=== PATIENT | female | born 1940 | race Caucasian/White ===

== ENCOUNTER 2018-07-20 06:55 | Day surgery (SDC) | payer MEDICARE, BC ==
--- NOTE | 2018-07-19 15:01 | History and Physical - [place] ---
CHIEF COMPLAINT/HISTORY OF CHIEF COMPLAINT: This patient presents with a history of intractable lumbar radiculopathy. Due to the failure of therapy, on 02/13/14 a spinal cord stimulator was implanted with internal generator. Over the years the system appeared to be working well until within the last one to one and a half years at which point the system began to fail. The system was Medtronic 28 electrode systems with internal generator. Attempts at salvaging the functionality of the system were unsuccessful. Because of her escalating pain level and the apparent early success of the stimulator she was give the option to remove or replace and she opted to replace. We then gave her the option to replace with Medtronic or with a new [employer] 16 electrode leads rather than 8 greater functionality of the pulse generator and she opted to implant with the new [employer] system. PAST MEDICAL HISTORY: Hypertension. PAST SURGICAL HISTORY: Laparotomy, lumbar spinal surgery, foot surgery, and hand surgery. MEDICATIONS ON ADMISSION: List to be provided. ALLERGIES: NEOMYCIN. FAMILY/PSYCHOSOCIAL HISTORY: Social history - Caffeine. Family history - Coronary artery disease, and hypertension. SYSTEMS REVIEW: The patient is appropriate in no acute distress. The remainder of the systems review is positive for head and neck pain, blood pressure, reflux esophagitis, and fibromyalgia. PHYSICAL EXAMINATION: Height is 5', weight is 180. No vital signs. HEENT: Within normal limits. LUNGS: Clear. HEART: Rapid and regular. ABDOMEN: Nontender. MUSCULOSKELETAL: Examination of the musculoskeletal system shows the incision for the leads midline approximating T12-L1. The generator site is noted at the left posterior gluteal margin. Both incisional sites appear to be intact. Chronic pain pattern low back with a bilateral lower extremity extension. Motor and sensory field evaluation lower extremities shows mild sensory loss bilateral, mild weakness bilateral. Assistive device used for ambulation. NEUROLOGIC: Cranial nerves are intact. IMPRESSION: 1. POST LUMBAR LAMINECTOMY SYNDROME, ICD-10 CODE M96.1 WITH LUMBAR RADICULOPATHY, ICD-10 CODE M54.16 AND M54.17. 2. INTERNAL SPINAL CORD STIMULATOR TWO LEADS INTERNAL GENERATOR NONFUNCTIONAL. PLAN: The patient is here for removal of the two nonfunctional leads and generator and replacement with two new leads and generator. The procedure will be considered outpatient although an overnight stay will be evaluated. The potential risks, side effects, and complications have all been reviewed and discussed including the potential failure of the newer system to adequately control pain in which case she will not have a new system placed, but her previous system removed. JOB NUMBER: [id number] MTDD
[~2018-07-20 06:55] MED LIST: ACETAMINOPHEN 1,000 MG/100 ML BTL IV ONE; CLINDAMYCIN 600MG/50ML PREMIX 600 MG/50 ML BAG IVPB ONE; FAMOTIDINE 20MG TABLET PO ONE; MECLIZINE 25 MG TABLET PO ONE; METOCLOPRAMIDE 10 MG TABLET PO ONE
[2018-07-20] MEDS ORDERED: CLINDAMYCIN (PEDIATRIC DOSING) 150 MG/ML VIAL IVPB ONE (06:56)
[2018-07-20] MEDS ORDERED: VANCOMYCIN HCL 1 GM VIAL IVPB ONE (06:56)
[2018-07-20] MEDS ORDERED: FLUMAZENIL 1MG/10ML VIAL IV ONE (06:56)
[2018-07-20] MEDS ORDERED: KETAMINE HCL 100MG/1ML VIAL INJ ONE (06:56)
[2018-07-20] MEDS ORDERED: LIDOCAINE 2% MDV (20MG/ML) 20ML VIAL IV ONE (06:56)
[2018-07-20] MEDS ORDERED: BUPIVACAINE 0.5% W/EPI MPF 30 ML VIAL IVP ONE (06:56)
[2018-07-20] MEDS ORDERED: LIDOCAINE 1% W/EPI 1:200,000 MPF 30ML SQ ONE (06:56)
[2018-07-20] MEDS ORDERED: PROPOFOL 10 MG/ML VIAL IV ONE (06:56)
[2018-07-20] MEDS ORDERED: MIDAZOLAM HCL 2MG/2ML VIAL IV ONE (06:56)
[2018-07-20] MEDS ORDERED: FENTANYL PF 100MCG/2ML VIAL IV ONE (06:56)
--- NOTE | 2018-07-21 06:27 | Operative Note ---
DATE: 07/20/2018. PRIMARY CARE PHYSICIAN: Dez Turk D.O. PREOPERATIVE DIAGNOSIS: 1. POSTLUMBAR LAMINECTOMY SYNDROME, ICD-10 CODE M96.1. 2. RADICULOPATHY, ICD-10 CODE M54.16 AND M54.17. 3. TWO-LEAD SPINAL CORD IMPLANTED STIMULATOR WITH INTERNAL GENERATOR NONFUNCTIONAL. PROCEDURES: 1. Fluoroscopically guided incision, subcutaneous dissection, and removal of two implanted spinal cord stimulators. 2. Incision, subcutaneous dissection, and removal of internal pulse generator at the left posterosuperior gluteal margin. 3. Fluoroscopically guided epidural access at left T11-12. Placement of spinal cord stimulator lead 1, a [employer] Infineon 16 with 16 electrodes, positioned left T7. 4. Fluoroscopically guided epidural access at left T12-L-1. Placement of spinal cord stimulator lead 2, a [employer] Infineon 16 with 16 electrodes, positioned right T7. 5. Complex programming of lead 1 over 20 minutes followed by complex programming of lead 2 over 20 minutes. 6. Incision with revision of midline incisional site and pouch for placement of leads and anchors. 7. Securing of leads 1 and 2 to supraspinous fascia using a [employer] locking anchor. 8. Revision of left posterior gluteal margin pouch for placement of generator identified as a [employer] programmable rechargeable WaveWriter generator. 9. Tunnelling between lead pouches into generator pouch. Placement of each lead into generator pouch. Each lead interfaced to the generator. 10. Closure of both incisions using Stratafix suture; #2-0 for the fascia and # 3-0 for the skin. Dermabond closure. 11. Complex recovery room programming of the internal generator for home use, two stimulators, for 20 minutes. SURGEON: Gino Arshad D.O. ANESTHESIA: Local sedation. ANESTHESIA PROVIDER: Karen Chiang CRNA. INDICATIONS: This patient presents with a history of intractable postlumbar laminectomy radiculopathy. A number of years previous, a Medtronic spinal cord stimulator eight-electrode system with generator was placed for pain control. Although early on the system appeared to be working, subsequently there was no functionality and loss of pain control. She was given the options to remove or remove and replace with a [employer] system. She opted to remove the Medtronic system and replace with a [employer] system. DESCRIPTION OF PROCEDURE: The patient was positioned on the operating table prone. Sterile prep and sterile technique. Sedation was administered by Anesthesia. Under imaging the previously placed incision from T11 through L1 was infiltrated. An incision was made and subcutaneous dissection was conducted to the two leads and their anchors. The anchors were released and the sutures were removed. The leads were removed using epidural access at 11- 12 and 12-1 on the left side. Two [employer] 16-electrode leads were positioned; one was positioned at T11-12 and the other was inserted at 12-1. They were advanced and positioned left of the midline at T7 as well as right of the midline at T7. A separate 16-electrode lead was placed left and a separate 16-electrode lead was placed right. Complex programming was performed over 20 minutes establishing stimulation of pain control to all of the appropriate areas. The patient was given the options to implant this system or remove. She opted to implant. She was re-sedated. The incision was then widened to accommodate the new leads and anchors. The needles were removed, and then each lead was anchored to the supraspinous fascia with a [employer] locking anchor and nonabsorbable suture. The left posterior gluteal margin pouch for the previous generator was infiltrated. An incision was made and subcutaneous dissection was conducted to the generator pouch. The generator was exteriorized and was removed with its connections. Antibiotic irrigation and Bovie for hemostasis. The generator pouch was then widened and revised to accommodate the [employer] programmable rechargeable WaveWriter generator. A tunneling tool was used to carry the two leads into the generator pouch, and then each lead was interfaced to the generator. The generator and its connections were placed into the pouch. The leads were placed into their own pouch. All incisions were then closed using Stratafix suture; #2-0 for the fascia and #3-0 for the skin. Dermabond closure was then used to approximate the edges of both wounds. She was then transported to the recovery room stable with no side effects from the procedure or the sedation. When awake and alert, complex programming of the internal generator was performed over 20 minutes establishing pain control. She requested to be discharged home. DISCHARGE INSTRUCTIONS: 1. The sites are to remain clean and dry. No showering or bathing in any way that would disrupt dressings. If this happens, contact the clinic. 2. Standard medications to be resumed including the antibiotic Levaquin 500 mg once a day for 14 days. 3. The office will contact the patient at home to set up an appointment within the next seven to ten days to evaluate the sites. Until then activities should stay low and controlled. 4. All other instructions were provided including numbers to contact with problems. She will be discharged. JOB NUMBER: [id number] cc: Renay Mckeon
--- NOTE | 2018-07-21 13:34 | RADIOLOGY REPORT ---
EXAM: THORACIC SPINE HISTORY: PAIN PUMP PLACEMENT. TECHNIQUE: A single AP view of the thoracic spine was performed. FINDINGS: The pain pump stimulator lead tips are at the T6-T7 level. IMPRESSION: STIMULATOR LEAD TIPS AT T6-T7 LEVEL. JOB NUMBER: [id number] MTDD
== END 2018-07-20 10:15 | disposition home or self-care (01) ==
LOC: SUR 06:55
PROVIDERS: ATTEND Pain Medicine Interventional Pain Medicine
DX: M96.1 Postlaminectomy syndrome, not elsewhere classified (principal); M54.16 Radiculopathy, lumbar region; M54.17 Radiculopathy, lumbosacral region; I10 Essential (primary) hypertension; G25.81 Restless legs syndrome; R60.9 Edema, unspecified; Z86.718 Personal history of other venous thrombosis and embolism
CPT/HCPCS: 63663; 63685; 01936; 95972; 72020; J3370; J3010; J3490; C1820; C1883